=== PATIENT | female | born 1975 | race Two or more races ===

== ENCOUNTER 2016-09-06 19:02 | Inpatient (IN) | payer MEDICAID ==
[~2016-09-06] VITALS: Ht 160 cm; Wt 72.1 kg
[2016-09-06] MEDS ORDERED: NKM (19:19)
--- NOTE | 2016-09-06 19:43 | Emergency Room Report ---
History of Present Illness General Chief Complaint: Edema Source: Patient, Family Member Present Illness HPI 41 YO F brought in with daughter for 2 months progressive abd distention, increase in size with bilateral ankle swelling. History of cirrhosis from heavy former/?current ETOH abuse (daughter states they are trying to "keep on her" about stopping drinking). Was given Augmenin Po Abx for "infection" of the stomach. Denies fever/chills, rash, nausea/vomiting, diarrhea. Allergies: Coded Allergies: No Known Allergies (Unverified , 09/06/16) Patient History Past Medical History: none Past Surgical History: none Pertinent Family History: none Social History: Reports: alcohol use Now: No Immunizations: UTD Reviewed Nursing Documentation: PMH: Agreed, PSxH: Agreed Nursing Documentation-PMH Past Medical History: No Stated History Review of Systems All Other Systems: negative except mentioned in HPI Physical Exam Vital Signs Date Time Temp Pulse Resp B/P Pulse Ox O2 Delivery O2 Flow Rate FiO2 09/06/16 19:08 98.4 108 20 131/65 96 Room Air Sp02 EP Interpretation: reviewed, abnormal General Appearance: normal inspection, well appearing, no apparent distress, alert, GCS 15, non-toxic Head: normocephalic, atraumatic Eyes: bilateral eye scleral icterus ENT: normal ENT inspection, hearing grossly normal, normal voice Neck: normal inspection, full range of motion, supple, no bony tend Respiratory: normal inspection, lungs clear, normal breath sounds, no respiratory distress, no retraction, no wheezing Cardiovascular #1: regular rate, rhythm, no edema Gastrointestinal: normal inspection, normal bowel sounds, no guarding, no hernia, distended, other - Very distended abdomen Genitourinary: no CVA tenderness Musculoskeletal: normal inspection, back normal, normal range of motion, Derek' s Sign negative, other - bilateral ankle, lower extremity edema, 2+ Neurologic: normal inspection, alert, oriented x3, responsive, orthotic aide III-XII nml as tested, motor strength/tone normal, speech normal Psychiatric: normal inspection Skin: jaundice Medical Decision Making Diagnostic Impression: Primary Impression: Ascites Qualified Codes: K70.31 - Alcoholic cirrhosis of liver with ascites Additional Impressions: Edema, peripheral Jaundice Atrial fibrillation Qualified Codes: I48.91 - Unspecified atrial fibrillation UTI (urinary tract infection) Qualified Codes: N30.01 - Acute cystitis with hematuria Hypoalbuminemia Hepatosplenomegaly Pleural effusion associated with hepatic disorder Hypokalemia ER Course Ascites, bilateral peripheral extremity edema, jaundice in setting of chronic ETOH abuse Likely cirrhosis No fever/chills and no significant ttp - unlikely SBP at this time PLAN Labs, CTAP Likely will need therapeutic drainage Admission EKG Diagnostic Results Rate: other - Atrial fib ST Segments: no acute changes ASA given to the pt in ED: No Rhythm Strip Diag. Results EP Interpretation: yes Rate: 105 Reevaluation Time: 21:22 Last Vital Signs Date Time Temp Pulse Resp B/P Pulse Ox O2 Delivery O2 Flow Rate FiO2 09/06/16 19:08 98.4 108 20 131/65 96 Room Air Status: improved Reevaluation Impression CTAP: large ascites, bilateral pleural effusions, hepatomegaly UA: 5-10 WBCs Labs: HypoK 3.2, total bili 2.4, direct 1.2, AST 56, albumin 1.7. Hb critically low ECG shows Atrial fib, HR 105. No RVR. No chest pain, SOB. Unknown duration of Atrial fib. PLAN Endorsed to Dr Mata for med/surg admission at 924pm 2U PRBC ordered K repleted IV ceftriaxone for UTI Disposition: ADMITTED INPATIENT Condition: Serious JUAN CARLOS GORDON M.D. Sep 06, 2016 19:43
[2016-09-06] MEDS ORDERED: Morphine Sulfate 2mg/ml Inj IVP ONE (19:45)
[2016-09-06 19:53] VITALS: BP 130/73
[2016-09-06 20:20] LABS: MEAN CORPUSCULAR HEMOGLOBIN 22.9 PG (27.0-31.0); MEAN CORPUSCULAR HGB CONC 28.9 G/DL (32.0-36.0); MEAN CORPUSCULAR VOLUME 79 FL (80-99); MEAN PLATELET VOLUME 5.1 FL (6.5-10.1); PLATELET COUNT 285 K/UL (150-450); RED BLOOD COUNT 2.75 M/UL (4.20-5.40); RED CELL DISTRIBUTION WIDTH 19.7 % (11.6-14.8); WHITE BLOOD COUNT 9.7 K/UL (4.8-10.8)
[2016-09-06 20:22] LABS: APPEARANCE,URINE CLEAR; KETONES,URINE NEGATIVE (NEGATIVE); LEUKOCYTE ESTERASE ,URINE 3+ (NEGATIVE); NITRITE,URINE NEGATIVE (NEGATIVE); PH,URINE 7 (4.5-8.0); PROTEIN,URINE NEGATIVE (NEGATIVE); UROBILINOGEN,URINE NORMAL MG/DL (0.0-1.0)
[2016-09-06 20:35] LABS: AMMONIA 33 umol/L (11-51)
[2016-09-06 20:36] LABS: ALANINE AMINOTRANSFERASE 13 U/L (3-33); ALBUMIN/GLOBULIN RATIO 0.2 (1.0-2.7); ANION GAP 18 (5-15); ASPARTATE AMINO TRANSFERASE 56 U/L (5-40); CARBON DIOXIDE 19 mEQ/L (20-30); CHLORIDE 97 mEQ/L (98-107); CREATININE 0.5 mg/dL (0.5-0.9); GLOMERULAR FILTRATION RATE > 60 mL/min (>60); HEMOLYSIS 0; LIPASE 31 U/L (< 60); POTASSIUM 3.2 mEQ/L (3.4-4.9); SODIUM 134 mEQ/L (135-145)
[2016-09-06 20:37] LABS: BACTERIA,URINE MODERATE /HPF; SQUAMOUS EPITHELIAL CELL,UR FEW /LPF (NONE/OCC)
[2016-09-06 20:59] LABS: BILIRUBIN,DIRECT 1.2 mg/dL (0.1-0.3)
[2016-09-06 21:27] LABS: ANISOCYTOSIS 2+; BAND NEUTROPHILS % (MANUAL) 3 % (0-8); BASOPHILS % (MANUAL) 1 % (0-2); EOSINOPHILS % (MANUAL) 1 % (0-3); HYPOCHROMASIA 2+; LYMPHOCYTES % (MANUAL) 21 % (20-45); NEUTROPHILS % (MANUAL) 71 % (45-75); PLATELET ESTIMATE ADEQUATE; PLATELET MORPHOLOGY NORMAL; TOTAL CELLS COUNTED 100
[2016-09-06] MEDS ORDERED: cefTRIAXone 1 GM in NS 55 ML IVPB ONE (21:30)
[2016-09-06] MEDS ORDERED: Morphine Sulfate 2mg/ml Inj IVP PRN (21:45)
[2016-09-06] MEDS ORDERED: Mylanta II UD 30ml ORAL PRN (21:45)
[2016-09-06] MEDS ORDERED: Miralax 17gm pkt ORAL PRN (21:45)
[2016-09-06] MEDS ORDERED: Zolpidem 5mg tab ORAL PRN (21:45)
[2016-09-06] MEDS ORDERED: LORazepam Inj 2mg/ml 1ml IV PRN (21:45)
[2016-09-06 22:25] VITALS: BP 110/66
--- NOTE | 2016-09-06 23:05 | General Progress Note ---
Assessment/Plan Assessment/Plan Assessment - EtOH Cirrhosis - Ascites - Anemia - Edema Recommendations - Transfuse - Paracentesis - PPI - Thiamine - GI endoscopy at later date - check AFP - check CT Thank you Halie Davis MD Subjective Allergies: Coded Allergies: No Known Allergies (Unverified , 09/06/16) Objective Last 24 Hour Vital Signs Date Time Temp Pulse Resp B/P Pulse Ox O2 Delivery O2 Flow Rate FiO2 09/06/16 22:25 98.4 98 16 110/66 100 Room Air 09/06/16 20:28 98.4 09/06/16 19:54 105 20 Room Air 09/06/16 19:53 98.4 105 20 130/73 100 Room Air 09/06/16 19:08 98.4 108 20 131/65 96 Room Air Laboratory Tests 09/06/16 19:30: Urine Color Pale yellow, Urine Appearance Clear, Urine pH 7, Urine Specific [place] 1.005, Urine Protein Negative, Urine Glucose (UA) Negative, Urine Ketones Negative, Urine Occult Blood 1+H, Urine Nitrite Negative, Urine Bilirubin Negative, Urine Urobilinogen Normal, Urine Leukocyte Esterase 3+H, Urine RBC 2-4H, Urine WBC 5-10H, Urine Squamous Epithelial Cells Few, Urine Bacteria ModerateH, Urine HCG, Qualitative Negative 09/06/16 19:45: White Blood Count 9.7, Red Blood Count 2.75L, Hemoglobin 6.3*L, Hematocrit 21.8L , Mean Corpuscular Volume 79L, Mean Corpuscular Hemoglobin 22.9L, Mean Corpuscular Hemoglobin Concent 28.9L, Red Cell Distribution Width 19.7H, Platelet Count 285, Mean Platelet Volume 5.1L, Neutrophils (%) (Auto) , Lymphocytes (%) (Auto) , Monocytes (%) (Auto) , Eosinophils (%) (Auto) , Basophils (%) (Auto) , Differential Total Cells Counted 100, Neutrophils % ( Manual) 71, Lymphocytes % (Manual) 21, Monocytes % (Manual) 3, Eosinophils % ( Manual) 1, Basophils % (Manual) 1, Band Neutrophils 3, Platelet Estimate Adequate, Platelet Morphology Normal, Hypochromasia 2+, Anisocytosis 2+, Sodium Level 134L, Potassium Level 3.2L, Chloride Level 97L, Carbon Dioxide Level 19L, Anion Gap 18H, Blood Urea Nitrogen 3L, Creatinine 0.5, Estimat Glomerular Filtration Rate > 60, Glucose Level 109H, Calcium Level 8.0L, Total Bilirubin 2.4H, Direct Bilirubin 1.2H, Aspartate Amino Transf (AST/SGOT) 56H, Alanine Aminotransferase (ALT/SGPT) 13, Alkaline Phosphatase 150H, Ammonia 33, Total Protein 8.0, Albumin 1.7L, Globulin 6.3, Albumin/Globulin Ratio 0.2L, Lipase 31 Height (Feet): 5 Height (Inches): 1.00 Weight (Pounds): 160 HALIE DAVIS Sep 06, 2016 23:05
[2016-09-06 23:25] VITALS: BP 115/67
[2016-09-07] VITALS (12 sets, daily range): BP systolic 103–121; BP diastolic 60–84
[2016-09-07] MEDS: Lactulose 20gm/30ml UDC ORAL SCH ×3 (00:36→11:56)
--- NOTE | 2016-09-07 08:48 | Consultation ---
DATE OF CONSULTATION: 09/06/2016 GASTROENTEROLOGY CONSULTATION CONSULTING PHYSICIAN: Halie Davis M.D. REFERRING PHYSICIAN: Darinel Mata M.D. CHIEF COMPLAINT: I was asked to see this patient by Dr. Darinel Mata for evaluation of ascites and cirrhosis. HISTORY OF PRESENT ILLNESS: The patient is a pleasant 41-year-old woman, who was brought into the emergency room due to increasing abdominal girth. The patient apparently is having significant alcohol history. She used to drink on a regular basis for several years. She states she was cutting down and her last time of drinking was about two months ago. She had a few drinks about two weeks ago. She went to an outside hospital a few weeks ago with some abdominal discomfort and distention, and was given some type of antibiotics for some type of infection. The details are not clear since the patient is also a poor historian. However, now, the patient comes in with increasing abdominal girth and significant leg edema. She denies any abdominal pain. She has had no history of hepatitis B, hepatitis C, or intravenous drug use. She did not have any other major medical problems. PAST MEDICAL HISTORY: Otherwise negative. FAMILY HISTORY: Noncontributory. SOCIAL HISTORY: The patient lives in . She does not smoke. She has a heavy drinking history as described above. REVIEW OF SYSTEMS: Otherwise negative. PHYSICAL EXAMINATION: GENERAL: A pleasant woman, seen in emergency room, daughter at bedside. HEENT: Normocephalic and atraumatic. Sclerae anicteric. Oropharynx clear. NECK: Supple. CHEST: Clear to auscultation. CARDIOVASCULAR: Regular rate. ABDOMEN: Soft with good bowel sounds. Distended. Some ascites could be appreciated. EXTREMITIES: Bilateral 1+ edema. NEUROLOGIC: Grossly nonfocal without asterixis. LABORATORY DATA: Noted. ASSESSMENT AND PLAN: The patient presents with decompensated liver disease with jaundice, ascites, and edema. In addition, the patient had significant degree of anemia of unclear etiology. The patient's stools will have to be checked for blood and she will need to be transfused. In addition, I will check the patient's ammonia level . Alpha fetoprotein and imaging screen should be done for hepatocellular carcinoma. I would like the patient to get a paracentesis for cytology and . The patient's prognosis is somewhat negative given her extent of cirrhosis. Endoscopy should be done once the patient is more stable. Thank you for asking me to participate in the care of this patient. Halie Davis M.D. DR: GURWINDER JOB#: [id number] CC:
--- NOTE | 2016-09-07 08:57 | Diagnostic Imaging Report ---
Clinical Indication: Abdominal pain and distention Technique: No oral contrast utilized, per emergency room physician request IV administration nonionic contrast. Venous phase spiral acquisition obtained through the abdomen and pelvis. Multiplanar reconstructions were generated. Total dose length product 1024 mGycm. CTDIvol(s) 19 mGy Comparison: None Findings: There is a moderate to large amount of ascites fluid present. There is considerable edema of the subcutaneous and abdominal fat. There are bilateral large pleural effusions, left greater than right The appendix is not definitely demonstrated, but there are no findings to suggest acute appendicitis. No evidence of diverticulosis or diverticulitis. No small bowel distention. No free intraperitoneal air The gallbladder contains gallstones. The wall is not grossly thickened. The liver is borderline enlarged. The spleen is upper limits normal in size. The bile ducts, pancreas, adrenals, kidneys are all unremarkable. No mesenteric or retroperitoneal mass or adenopathy. No pelvic mass or adenopathy. There is a 15 mm low-attenuation lesion within the lower uterus, could represent a small cervical fibroid or a large nabothian cyst. The adnexal structures are unremarkable. Lung bases demonstrate partial atelectasis of the right lower lobe due to compression pleural fluid, and what may be complete atelectasis of left lower lobe. The heart is enlarged. The bones demonstrate degenerative spondylosis changes. There is transitional anatomy of lumbosacral junction. Prominent nodes are seen in the bilateral inguinal regions. Impression: Anasarca, with moderate to large ascites, bilateral large pleural effusions, and edema of the subcutaneous abdominal fat Left lower lobe and partial right lower lobe pulmonary atelectasis, due to the pleural fluid Borderline hepatosplenomegaly Cardiomegaly Cholelithiasis Incidental findings noted, including degenerative spondylosis, transitional lumbosacral anatomy, a small cervical fibroid versus nabothian cysts This agrees with the preliminary interpretation provided overnight by Dr. Huber The CT scanner at [facility] is accredited by the [employer] and the scans are performed using protocols designed to limit radiation exposure to as low as reasonably achievable to attain images of sufficient resolution adequate for diagnostic evaluation.
[2016-09-07] MEDS ORDERED: Cefepime 1gm vial ONE ×2 (09:20→11:46)
[2016-09-07] MEDS: Cefepime HCl 1 GM in D5W 55 ML IV SCH ×2 (09:28→14:20)
[2016-09-07 10:18] LABS: BASOPHILS % (AUTO) 1.5 % (0.0-2.0); EOSINOPHILS % (AUTO) 1.3 % (0.0-3.0); LYMPHOCYTES % (AUTO) 19.6 % (20.0-45.0); MEAN CORPUSCULAR HEMOGLOBIN 25.3 PG (27.0-31.0); MEAN CORPUSCULAR HGB CONC 31.4 G/DL (32.0-36.0); MEAN CORPUSCULAR VOLUME 81 FL (80-99); MEAN PLATELET VOLUME 5.8 FL (6.5-10.1); MONOCYTES % (AUTO) 10.1 % (1.0-10.0); NEUTROPHILS % (AUTO) 67.5 % (45.0-75.0); PLATELET COUNT 284 K/UL (150-450); RED BLOOD COUNT 3.55 M/UL (4.20-5.40); RED CELL DISTRIBUTION WIDTH 18.3 % (11.6-14.8); WHITE BLOOD COUNT 7.5 K/UL (4.8-10.8)
[2016-09-07 10:32] LABS: ALANINE AMINOTRANSFERASE 12 U/L (3-33); ALBUMIN/GLOBULIN RATIO 0.2 (1.0-2.7); ANION GAP 14 (5-15); ASPARTATE AMINO TRANSFERASE 49 U/L (5-40); CALCIUM 7.7 mg/dL (8.6-10.2); CARBON DIOXIDE 21 mEQ/L (20-30); CHLORIDE 101 mEQ/L (98-107); CHOLESTEROL 145 mg/dL (< 200); CHOLESTEROL/HDL RATIO 10.4 (3.3-4.4); CREATININE 0.5 mg/dL (0.5-0.9); GLOMERULAR FILTRATION RATE > 60 mL/min (>60); HEMOLYSIS 3; LDL CHOLESTEROL (CALC.) 107 mg/dL (60-99); POTASSIUM 3.3 mEQ/L (3.4-4.9); SODIUM 136 mEQ/L (135-145); TOTAL PROTEIN 7.2 g/dL (6.6-8.7)
[2016-09-07 10:33] LABS: AMMONIA 48 umol/L (11-51)
[2016-09-07 10:54] LABS: BILIRUBIN,DIRECT 1.4 mg/dL (0.1-0.3)
[2016-09-07 11:25] LABS: INR 1.7 (0.9-1.1)
--- NOTE | 2016-09-07 15:52 | Diagnostic Imaging Report ---
Indications: Ascites Technique: Ultrasound used to localize optimal puncture site. Sterile prepping and draping right lower quadrant. Local anesthesia with 1% lidocaine. Under real-time ultrasound guidance, puncture peritoneal space using paracentesis needle. Stylet removed. Catheter placed to vacuum bottle suction. Total 4.5 liters of clear yellow fluid aspirated. Patient tolerated procedure well, without immediate complication. Findings: Followup sonography demonstrates complete resolution of peritoneal fluid. Impression: Successful ultrasound-guided paracentesis, yielding 4.5 liters of clear yellow fluid
--- NOTE | 2016-09-07 17:04 | History & Physical ---
History and Physical History & Physicial Job [id number] Darinel Mata MD Sep 07, 2016 17:03
[2016-09-07] MEDS ORDERED: LASIX20 M1 ORAL (17:05)
[2016-09-07] MEDS ORDERED: ALDACTONE50 MG ORAL (17:05)
[2016-09-07] MEDS ORDERED: PROTONIX40 M2 GT (17:05)
--- NOTE | 2016-09-07 17:08 | Consultation ---
History of Present Illness General Chief Complaint: Edema Present Illness Allergies: Coded Allergies: No Known Allergies (Unverified , 09/06/16) Medication History Scheduled No Known Medications* (NKM - No Known Medications*), 0 ., (Reported) Patient History Healthcare decision maker Resuscitation status Advanced Directive on File Physical Exam Last 24 Hour Vital Signs Date Time Temp Pulse Resp B/P Pulse Ox O2 Delivery O2 Flow Rate FiO2 09/07/16 15:31 98.1 95 21 121/67 98 Room Air 09/07/16 14:18 95 21 121/67 98 Room Air 09/07/16 10:49 101 21 105/84 98 Room Air 09/07/16 08:18 98.1 98 21 108/72 98 Room Air 09/07/16 06:25 98.1 93 21 115/65 98 Room Air 09/07/16 05:25 98.3 91 21 111/64 98 Room Air 09/07/16 04:25 98.2 92 18 112/64 98 Room Air 09/07/16 03:25 97.9 96 21 115/66 98 Room Air 09/07/16 02:25 98.4 97 22 109/66 99 Room Air 09/07/16 01:25 98.3 95 21 113/65 100 Room Air 09/07/16 00:25 98.3 90 20 116/63 100 Room Air 09/06/16 23:40 98.6 95 17 09/06/16 23:25 98.6 98 17 115/67 100 Room Air 09/06/16 22:25 98.4 98 16 110/66 100 Room Air 09/06/16 20:28 98.4 09/06/16 19:54 105 20 Room Air 09/06/16 19:53 98.4 105 20 130/73 100 Room Air 09/06/16 19:08 98.4 108 20 131/65 96 Room Air Intake and Output 09/06/16 09/07/16 19:00 07:00 Output Total 101 ml Balance -101 ml Output Urine Total 100 ml Stool Total 1 ml # Voids 1 Laboratory Tests Test 09/06/16 19:30 09/06/16 19:45 09/07/16 10:00 09/07/16 10:50 Urine Color Pale yellow Urine Appearance Clear Urine pH 7 (4.5-8.0) Urine Specific [place] 1.005 (1.005-1.035) Urine Protein Negative (NEGATIVE) Urine Glucose (UA) Negative (NEGATIVE) Urine Ketones Negative (NEGATIVE) Urine Occult Blood 1+ (NEGATIVE) H Urine Nitrite Negative (NEGATIVE) Urine Bilirubin Negative (NEGATIVE) Urine Urobilinogen Normal MG/DL (0.0-1.0) Urine Leukocyte Esterase 3+ (NEGATIVE) H Urine RBC 2-4 /HPF (0 - 2) H Urine WBC 5-10 /HPF (0 - 2) H Urine Squamous Epithelial Cells Few /LPF (NONE/OCC) Urine Bacteria Moderate /HPF (NONE) H Urine HCG, Qualitative Negative White Blood Count 9.7 K/UL (4.8-10.8) 7.5 K/UL (4.8-10.8) Red Blood Count 2.75 M/UL (4.20-5.40) L 3.55 M/UL (4.20-5.40) L Hemoglobin 6.3 G/DL (12.0-16.0) *L 9.0 G/DL (12.0-16.0) #L Hematocrit 21.8 % (37.0-47.0) L 28.6 % (37.0-47.0) #L Mean Corpuscular Volume 79 FL (80-99) L 81 FL (80-99) Mean Corpuscular Hemoglobin 22.9 PG (27.0-31.0) L 25.3 PG (27.0-31.0) L Mean Corpuscular Hemoglobin Concent 28.9 G/DL (32.0-36.0) L 31.4 G/DL (32.0-36.0) L Red Cell Distribution Width 19.7 % (11.6-14.8) H 18.3 % (11.6-14.8) H Platelet Count 285 K/UL (150-450) 284 K/UL (150-450) Mean Platelet Volume 5.1 FL (6.5-10.1) L 5.8 FL (6.5-10.1) L Neutrophils (%) (Auto) % (45.0-75.0) 67.5 % (45.0-75.0) Lymphocytes (%) (Auto) % (20.0-45.0) 19.6 % (20.0-45.0) L Monocytes (%) (Auto) % (1.0-10.0) 10.1 % (1.0-10.0) H Eosinophils (%) (Auto) % (0.0-3.0) 1.3 % (0.0-3.0) Basophils (%) (Auto) % (0.0-2.0) 1.5 % (0.0-2.0) Differential Total Cells Counted 100 Neutrophils % (Manual) 71 % (45-75) Lymphocytes % (Manual) 21 % (20-45) Monocytes % (Manual) 3 % (1-10) Eosinophils % (Manual) 1 % (0-3) Basophils % (Manual) 1 % (0-2) Band Neutrophils 3 % (0-8) Platelet Estimate Adequate Platelet Morphology Normal Hypochromasia 2+ Anisocytosis 2+ Sodium Level 134 mEQ/L (135-145) L 136 mEQ/L (135-145) Potassium Level 3.2 mEQ/L (3.4-4.9) L 3.3 mEQ/L (3.4-4.9) L Chloride Level 97 mEQ/L (98-107) L 101 mEQ/L (98-107) Carbon Dioxide Level 19 mEQ/L (20-30) L 21 mEQ/L (20-30) Anion Gap 18 (5-15) H 14 (5-15) Blood Urea Nitrogen 3 mg/dL (7-23) L 3 mg/dL (7-23) L Creatinine 0.5 mg/dL (0.5-0.9) 0.5 mg/dL (0.5-0.9) Estimat Glomerular Filtration Rate > 60 mL/min (>60) > 60 mL/min (>60) Glucose Level 109 mg/dL (74-106) H 109 mg/dL (74-106) H Calcium Level 8.0 mg/dL (8.6-10.2) L 7.7 mg/dL (8.6-10.2) L Total Bilirubin 2.4 mg/dL (0.0-1.2) H 2.8 mg/dL (0.0-1.2) H Direct Bilirubin 1.2 mg/dL (0.1-0.3) H 1.4 mg/dL (0.1-0.3) H Aspartate Amino Transf (AST/SGOT) 56 U/L (5-40) H 49 U/L (5-40) H Alanine Aminotransferase (ALT/SGPT) 13 U/L (3-33) 12 U/L (3-33) Alkaline Phosphatase 150 U/L (35-104) H 129 U/L (35-104) H Ammonia 33 umol/L (11-51) 48 umol/L (11-51) Total Protein 8.0 g/dL (6.6-8.7) 7.2 g/dL (6.6-8.7) Albumin 1.7 g/dL (3.5-5.2) L 1.6 g/dL (3.5-5.2) L Globulin 6.3 g/dL 5.6 g/dL Albumin/Globulin Ratio 0.2 (1.0-2.7) L 0.2 (1.0-2.7) L Lipase 31 U/L (< 60) Triglycerides Level 118 mg/dL (< 150) Cholesterol Level 145 mg/dL (< 200) LDL Cholesterol 107 mg/dL (60-99) H HDL Cholesterol 14 mg/dL (> 60) Cholesterol/HDL Ratio 10.4 (3.3-4.4) H Thyroid Stimulating Hormone (TSH) 6.520 uIU/mL (0.300-4.500) Prothrombin Time 18.0 SEC (9.30-11.50) H Prothromb Time International Ratio 1.7 (0.9-1.1) H Activated Partial Thromboplast Time 38 SEC (23-33) H Microbiology Date/Time Source Procedure Growth Status 09/06/16 19:30 Urine,Clean Catch Urine Culture - Preliminary Resulted Height (Feet): 5 Height (Inches): 1.00 Weight (Pounds): 160 Medications Current Medications Medications (Trade) Dose Ordered Sig/Rodrick Route PRN Reason Start Time Stop Time Status Last Admin Dose Admin Acetaminophen (Tylenol) 650 mg Q4H PRN ORAL fever 09/06/16 21:45 10/06/16 21:44 Al Hydroxide/Mg Hydroxide (Mylanta II) 30 ml Q6H PRN ORAL dyspepsia 09/06/16 21:45 10/06/16 21:44 Cefepime HCl/ Dextrose (Maxipime/D5W) 55 ml @ 110 mls/hr EVERY 8 HOURS IV 09/07/16 08:00 09/14/16 07:59 09/07/16 14:20 Dextrose (Dextrose 50%) STAT PRN IV Hypoglycemia 09/06/16 21:45 10/06/16 21:44 Lactulose 30 gm 30 gm EVERY 6 HOURS ORAL 09/07/16 00:00 10/07/16 00:00 09/07/16 11:56 Lorazepam (Ativan 2mg/ml 1ml) 0.5 mg Q4H PRN IV For Anxiety 09/06/16 21:45 09/13/16 21:44 Morphine Sulfate (Morphine Sulfate) 2 mg Q4H PRN IVP For Pain 09/06/16 21:45 09/13/16 21:44 09/07/16 16:35 Ondansetron HCl (Zofran) 4 mg Q6H PRN IVP Nausea & Vomiting 09/06/16 21:45 10/06/16 21:44 Polyethylene Glycol (Miralax) 17 gm HSPRN PRN ORAL Constipation 09/06/16 21:45 10/06/16 21:44 Zolpidem Tartrate (Ambien) 5 mg HSPRN PRN ORAL Insomnia 09/06/16 21:45 10/06/16 21:44 Assessment/Plan Problem List: (1) Ascites ICD Codes: R18.8 - Other ascites SNOMED: 606972672 Qualifiers: Qualified Codes: K70.31 - Alcoholic cirrhosis of liver with ascites (2) Jaundice ICD Codes: R17 - Unspecified jaundice SNOMED: 86606487 (3) Edema, peripheral ICD Codes: R60.9 - Edema, unspecified SNOMED: 007851287 (4) Pleural effusion associated with hepatic disorder ICD Codes: K76.9 - Liver disease, unspecified; J91.8 - Pleural effusion in other conditions classified elsewhere SNOMED: 71560127 (5) Hepatosplenomegaly ICD Codes: R16.2 - Hepatomegaly with splenomegaly, not elsewhere classified SNOMED: 93776162 KELLY MCCAULEY Sep 07, 2016 17:08
--- NOTE | 2016-09-07 20:15 | General Progress Note ---
Assessment/Plan Assessment/Plan Assessment - EtOH Cirrhosis - Ascites - Anemia - Edema Recommendations - Transfuse PRN - Paracentesis - PPI - Thiamine - GI endoscopy at later date - check AFP - check CT Subjective Allergies: Coded Allergies: No Known Allergies (Unverified , 09/06/16) Subjective seen early am in ER no new complaints s/p transfusion Objective Last 24 Hour Vital Signs Date Time Temp Pulse Resp B/P Pulse Ox O2 Delivery O2 Flow Rate FiO2 09/07/16 15:31 98.1 95 21 121/67 98 Room Air 09/07/16 14:18 95 21 121/67 98 Room Air 09/07/16 10:49 101 21 105/84 98 Room Air 09/07/16 08:18 98.1 98 21 108/72 98 Room Air 09/07/16 06:25 98.1 93 21 115/65 98 Room Air 09/07/16 05:25 98.3 91 21 111/64 98 Room Air 09/07/16 04:25 98.2 92 18 112/64 98 Room Air 09/07/16 03:25 97.9 96 21 115/66 98 Room Air 09/07/16 02:25 98.4 97 22 109/66 99 Room Air 09/07/16 01:25 98.3 95 21 113/65 100 Room Air 09/07/16 00:25 98.3 90 20 116/63 100 Room Air 09/06/16 23:40 98.6 95 17 09/06/16 23:25 98.6 98 17 115/67 100 Room Air 09/06/16 22:25 98.4 98 16 110/66 100 Room Air 09/06/16 20:28 98.4 Intake and Output 09/06/16 09/07/16 19:00 07:00 Output Total 101 ml Balance -101 ml Output Urine Total 100 ml Stool Total 1 ml # Voids 1 Laboratory Tests 09/07/16 10:00: White Blood Count 7.5, Red Blood Count 3.55L, Hemoglobin 9.0#L, Hematocrit 28.6# L, Mean Corpuscular Volume 81, Mean Corpuscular Hemoglobin 25.3L, Mean Corpuscular Hemoglobin Concent 31.4L, Red Cell Distribution Width 18.3H, Platelet Count 284, Mean Platelet Volume 5.8L, Neutrophils (%) (Auto) 67.5, Lymphocytes (%) (Auto) 19.6L, Monocytes (%) (Auto) 10.1H, Eosinophils (%) (Auto ) 1.3, Basophils (%) (Auto) 1.5, Sodium Level 136, Potassium Level 3.3L, Chloride Level 101, Carbon Dioxide Level 21, Anion Gap 14, Blood Urea Nitrogen 3L, Creatinine 0.5, Estimat Glomerular Filtration Rate > 60, Glucose Level 109H , Calcium Level 7.7L, Total Bilirubin 2.8H, Direct Bilirubin 1.4H, Aspartate Amino Transf (AST/SGOT) 49H, Alanine Aminotransferase (ALT/SGPT) 12, Alkaline Phosphatase 129H, Ammonia 48, Total Protein 7.2, Albumin 1.6L, Globulin 5.6, Albumin/Globulin Ratio 0.2L, Triglycerides Level 118, Cholesterol Level 145, LDL Cholesterol 107H, HDL Cholesterol 14, Cholesterol/HDL Ratio 10.4H, Thyroid Stimulating Hormone (TSH) 6.520H 09/07/16 10:50: Prothrombin Time 18.0H, Prothromb Time International Ratio 1.7H, Activated Partial Thromboplast Time 38H Height (Feet): 5 Height (Inches): 3.00 Weight (Pounds): 159 Objective WDWN NCAT supple CTA RRR Soft distended (+) edema no asterixes BREEZY RIVERA Sep 07, 2016 20:15
--- NOTE | 2016-09-07 21:48 | History and Physical Report ---
DATE OF ADMISSION: 09/06/2016 CHIEF COMPLAINT: Pedal edema and abdominal distention. HISTORY OF PRESENT ILLNESS: This is a 41 years old female with past medical history significant for alcoholism as well as liver cirrhosis, who presented to the hospital complaining about the progressive worsening of the abdominal girdle and distention and ankle edema. The patient said that she has been drinking and the daughter stated that they are trying to keep her and stop drinking, but she was not compliant. She was given Augmentin and antibiotics infection in the stomach and then she denies any fever or chills. Denies any nausea or vomiting. Denies any diarrhea. Denies any bright red blood per rectum. Denies any dark stools. Denies any , or hemoptysis. Shortly after initial evaluation in the emergency, the patient was noted to have a hemoglobin of 6.3 and then subsequently the patient was admitted to the hospital with acute liver cirrhosis with severe anemia. PAST MEDICAL HISTORY AND PAST SURGICAL HISTORY: As above, history of alcoholism with alcohol liver cirrhosis with ascites, anemia, and pedal edema. MEDICATIONS: At home is none. FAMILY HISTORY: Noncontributory. SOCIAL HISTORY: The patient lives at home. She does not smoke. She is a heavy drinker. REVIEW OF SYSTEMS: Mostly as above. PHYSICAL EXAMINATION: VITAL SIGNS: Temperature 98.3, pulse of 91, respirations 21, and blood pressure 111/64. GENERAL: The patient is awake, responsive, in no acute distress. HEAD AND NECK: Pupils are reactive to light. Extraocular movements are intact. Neck was supple. No JVD. LUNGS: Good air entry. No wheezing or rales. HEART: S1 and S2. Regular rhythm. No gallops. ABDOMEN: Soft. Fluid shift. Distended. EXTREMITIES: A +2 edema of the bilateral lower extremities. NEUROLOGIC: Cranial nerves II through XII are grossly intact. Moves all four extremities. Gait is intact. LABORATORY AND DIAGNOSTIC DATA: Laboratory on admission, WBC of 9.7, hemoglobin of 6.3, hematocrit 21, and platelet is 285,000. Sodium 134, potassium 3.2, chloride 97, bicarbonate 19, BUN 3, creatinine 0.5, and glucose is 109. Total bilirubin of 2.4 and direct bilirubin of 1.2. Ammonia level 33. Cholesterol is 145. PT of 18, INR 1.7, and PTT of 38. Urinalysis and beta-HCG is negative, +3 leukocytes, +1 occult blood. The patient had a duplex of lower extremity, was essentially unremarkable. CT scan of the abdomen showed that borderline hepatosplenomegaly, cardiomegaly, cholelithiasis, and ascites with a moderate to large ascites with anasarca, bilateral large pleural effusion, and edema of the subcutaneous abdominal wall. ASSESSMENT: 1. Abdominal ascites. 2. Liver cirrhosis. 3. Alcoholism. 4. Anemia. PLAN: Admit the patient to the telemetry. Discussed with the patient extensively with regards to the alcohol consumption. The patient already received packed RBC. Abdominal paracentesis was already done. Duplex of the lower extremities is negative for DVT. Discussed with the patient the consumption of alcohol, even one glass of alcohol make her to , possibly from bleeding as well as liver cirrhosis and the patient advised to follow up with the [facility] within one week or to the [facility] emergency room and try to find a primary doctor at the [facility]. I advised the patient if her status is not improving, she started having any dark stools or bright red blood per rectum, or vomiting blood, she needs to return back to the hospital emergency room or any emergency room close to the house and prescription for the Lasix, Aldactone, as well as Protonix was given to the patient. Advised the patient to have an endoscopy done as an outpatient and follow up with the [facility]. She understood that. battery installer was at bedside and confirmed that she understood and follow up with the [facility] within one week. Darinel Mata M.D. DR: RODRIGO JOB#: [id number] CC:
[2016-09-08 08:44] LABS: OTHERS PATHOLOGIST COMMENT
[2016-09-10] MEDS ORDERED: CIPRO500 MG PO (13:57)
[2016-09-10] MEDS ORDERED: CIPRO500 MG/51 PO (13:57)
--- NOTE | 2016-09-10 14:07 | Discharge Summary ---
Discharge Summary Hospital Course Date of Admission Sep 06, 2016 at 20:26 Date of Discharge Sep 07, 2016 at 19:20 Admitting Diagnosis ascites/abd pain HPI Lakshmi Cain is a 41 year old female who was admitted on Sep 06, 2016 at 20: 26 for Ascites, Abdominal Pain Hospital Course dc summary #[id number] Discharge Medications New Medications: Ciprofloxacin* (Cipro*) 500 Mg Tablet 500 MG PO BID, #14 TAB Furosemide* (Lasix*) 20 Mg Tablet 20 MG ORAL TWICE A DAY for 60 Days, TAB Pantoprazole Sodium (Protonix) 40 Mg Granpkt.dr 40 MG GT TWICE A DAY for 60 Days, PKT Spironolactone (Aldactone) 50 Mg Tablet 50 MG ORAL DAILY for 30 Days, TAB Discontinued Medications: No Known Medications* (NKM - No Known Medications*) . 0 ., 0 Refills Discharge Discharge Disposition Patient was discharged to Home (01) Discharge Diagnoses: Discharge Instructions Discharge Instructions Special Instructions I have been assigned to complete a D/C Summary on this account. I was not involved in the patient management Adriane Love NP (Vanchtein) Sep 10, 2016 14:07
--- NOTE | 2016-09-11 06:18 | Discharge Summary 2 SIG ---
DATE OF ADMISSION: 09/06/2016 DATE OF DISCHARGE: 09/07/2016 REASON FOR ADMISSION: 41-year-old female brought in by her daughter for progressive abdominal distention and bilateral ankle swelling. The patient with a known history of cirrhosis from heavy alcohol abuse. The patient was getting Augmentin antibiotics for possible infection of the stomach. No fever. No chills. No nausea. No vomiting. No blood in the stool. No rash. No diarrhea. No abdominal pain. EKG showed atrial fibrillation with heart rate of [address] of the abdomen and pelvis revealed large ascites, bilateral pleural effusion and hepatomegaly. Urinalysis with evidence of UTI. Potassium 3.2. Total and direct bilirubin elevated. Total bilirubin 2.4. Direct 1.2. AST 56. Albumin 1.7. Hemoglobin 6.3 and hematocrit 21.8. In the emergency room, the patient was typed and crossed for two units of packed red blood cells. Potassium was repleted, started on IV antibiotics for UTI. Patient was admitted to the hospital for further management. ADMITTING DIAGNOSES: 1. Ascites. 2. Peripheral edema. 3. Chronic alcohol abuse. 4. Urinary tract infection. 5. Atrial fibrillation. 6. Anemia. 7. Liver cirrhosis. 8. Hypokalemia HOSPITAL STAY: The patient undergone transfusion of two units of packed red blood cells. Hemoglobin and hematocrit were stable after transfusion. GI consult was requested. GI added PPI and thiamine and recommended upper endoscopy later as outpatient. Antibiotics provided. Urine culture positive for E. coli and Strep group B. Continue oral antibiotic for additional seven days upon discharge. The patient undergone transfusion of two units of packed red blood cells. Hemoglobin and hematocrit stable, at baseline now. Hemoglobin up to 9 and hematocrit -28.6. Potassium was repleted. Since CT of the abdomen revealed large ascites, the patient undergone paracenteses, which yielded 4.5 liters of ascitic fluid . The patient immediately felt better. Doppler bilateral lower extremities was negative for DVT. The patient was counseled on alcohol cessation. Followup with [facility] in one week. Patient was explained, that if she started to have a dark or bright red blood stool per rectum or vomiting blood, she needs to come to the hospital emergency room and be evaluated immediately. Endoscopy to be done as outpatient with [facility]. The patient was stable for discharge. DISCHARGE DIAGNOSES: Include: 1. Ascites, status post paracentesis 4.5 liters. 2. Peripheral edema. 3. Chronic alcohol abuse. 4. Urinary tract infection/Escherichia coli, Streptococcal group B. 5. Atrial fibrillation. 6. Anemia, status post blood transfusion. 7. Pleural effusion. 8. Liver cirrhosis. 9. Hepatosplenomegaly. 10. Hypokalemia. 11. Hypoalbuminemia. DISCHARGE MEDICATIONS: See medication reconciliation list. DISCHARGE INSTRUCTIONS: [facility] outlined in the patient's management. Darinel Mata M.D. I have been assigned to dictate discharge summary on this account and I was not involved in the patient's management. Adriane StevensAuburn Community HospitalFrancoise N.PRoseline DR: Sandy JOB#: [id number] CC: JUDITH
--- NOTE | 2016-09-19 10:36 | Diagnostic Imaging Report ---
APPROVED REPORT CPT Code: 95479 Present Symptoms Lower Extremity Edema: Bilateral BILATERAL: Imaging reveals a patent deep venous system bilaterally. There is no evidence of thrombus within the femoral, popliteal or tibial segments. The greater saphenous veins are also within normal limits. Doppler indicates normal spontaneous flow within these segments.
== END 2016-09-07 19:20 | disposition home or self-care (01) | DRG 280 ==
LOC: EMR 20:03 → 2E 20:26 → EDBEDREQ 09-07 15:08
PROC: 30233N1 Transfusion of Nonautologous Red Blood Cells into Peripheral Vein, Percutaneous Approach (ICD-10-PCS; principal; 2016-09-06)
PROC: 0W9G3ZZ Drainage of Peritoneal Cavity, Percutaneous Approach (ICD-10-PCS; 2016-09-06)
DX: K70.31 Alcoholic cirrhosis of liver with ascites (principal); J91.8 Pleural effusion in other conditions classified elsewhere; N39.0 Urinary tract infection, site not specified; I48.91 Unspecified atrial fibrillation; E88.09 Other disorders of plasma-protein metabolism, not elsewhere classified; R16.2 Hepatomegaly with splenomegaly, not elsewhere classified; F10.20 Alcohol dependence, uncomplicated; R60.9 Edema, unspecified; B96.20 Unspecified Escherichia coli [E. coli] as the cause of diseases classified elsewhere; B95.1 Streptococcus, group B, as the cause of diseases classified elsewhere; D64.9 Anemia, unspecified; E87.6 Hypokalemia
CPT/HCPCS: 36415; 74177; 76942; 80053; 80061; 81003; 81025; 82140; 82248; 83690; 84443; 85007; 85025; 85610; 85730; 86850; 86900; 86901; 86920; 87086; 87181; 93005; 93970; J8499

== ENCOUNTER 2017-01-27 15:50 | Emergency (ER) | payer MEDICAID ==
[~2017-01-27] VITALS: Ht 157.5 cm; Wt 62.6 kg
[~2017-01-27 15:50] MED LIST: ALDACTONE50 MG ORAL; CIPRO500 MG PO; CIPRO500 MG/51 PO; LASIX20 M1 ORAL; NKM; PROTONIX40 M2 GT
[2017-01-27] MEDS ORDERED: NKM (16:02)
[2017-01-27 16:19] VITALS: BP 107/64
--- NOTE | 2017-01-27 16:20 | Emergency Room Report ---
History of Present Illness General Chief Complaint: Skin Rash/Abscess Source: Patient Present Illness HPI 41-year-old female presents emergency department complaining of multiple bug to the upper extremity approximately 5 days ago. 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 pt. states she was outside picking chili's again 2 days later. Patient denies fevers, chills patient denies bleeding. Patient denies other persons in the household with similar symptoms. She denies taking anything for her symptoms. Denies lesions/rashes elsewhere on the body. Denies new medications or body washes or creams. Denies swelling of the lips, tongue , throat or airway. Denies wheezing, or shortness of breath. Denies recent travel, recent illness or ill contacts. denies blisters, oral lesions, or sloughing of the skin. Allergies: Coded Allergies: No Known Allergies (Unverified , 09/06/16) Patient History Past Medical History: see triage record Past Surgical History: none Pertinent Family History: none Last Menstrual Period: Irregular Now: No Reviewed Nursing Documentation: PMH: Agreed, PSxH: Agreed Nursing Documentation-PMH Past Medical History: No Stated History Hx Cardiac Problems: No - No info gathered, pt is dc few mins after admission Hx Cancer: No - No info gathered, pt is dc few mins after admission Hx Neurological Problems: No Review of Systems All Other Systems: negative except mentioned in HPI Physical Exam Vital Signs Date Time Temp Pulse Resp B/P Pulse Ox O2 Delivery O2 Flow Rate FiO2 01/27/17 15:58 97.9 87 16 103/61 99 Room Air Sp02 EP Interpretation: reviewed, normal General Appearance: no apparent distress, alert, GCS 15, non-toxic Head: normocephalic, atraumatic Eyes: bilateral eye PERRL, bilateral eye normal inspection ENT: hearing grossly normal, normal pharynx, no angioedema, normal voice Neck: full range of motion Respiratory: lungs clear, normal breath sounds, speaking full sentences Cardiovascular #1: regular rate, rhythm, no edema Musculoskeletal: back normal, gait/station normal, normal range of motion, non- tender Neurologic: alert, oriented x3, responsive, motor strength/tone normal, sensory intact, speech normal Psychiatric: judgement/insight normal, memory normal, mood/affect normal Skin: normal color, warm/dry, well hydrated, rash - multiple insect bites of the bilateral UE's with localized reaction, no evidence of secondary infection, no d/c, no blisters, no linear pattern, no versicles. Lymphatic: no adenopathy Medical Decision Making PA Attestation Dr. Corona is my supervising Physician whom patient management has been discussed with. Diagnostic Impression: Primary Impression: Rash and other nonspecific skin eruption Additional Impression: Insect bite Qualified Codes: W57.XXXA - Bitten or stung by nonvenomous insect and other nonvenomous arthropods, initial encounter ER Course 41-year-old female presents emergency department complaining of multiple bug to the upper extremity approximately 5 days ago. Patient states she was out picking [employer] and had rash on UE's since then. pt. states she was outside picking [employer] again 2 days later. Patient denies fevers, chills patient denies bleeding. Patient denies other persons in the household with similar symptoms. She denies taking anything for her symptoms. Denies lesions/rashes elsewhere on the body. Denies new medications or body washes or creams. Denies swelling of the lips, tongue , throat or airway. Denies wheezing, or shortness of breath. Denies recent travel, recent illness or ill contacts. denies blisters, oral lesions, or sloughing of the skin. Ddx considered but are not limited to cellulitis, scabies, insect bites, tic bites, spider bites, contact dermatitis, Drug reaction, allergic reaction, fungal infection, lice. Vital signs: are WNL, pt. is afebrile H&PE are most consistent with multiple insect bites of the bilateral UE's with localized reaction, no evidence of secondary infection, no d/c, no blisters , no linear pattern, no versicles. ORDERS: none required at this time, the diagnosis is clinical ED INTERVENTIONS: None required at this time. DISCHARGE: At this time pt. is stable for d/c to home. Will provide printed patient care instructions, and any necessary prescriptions. Care plan and follow up instructions have been discussed with the patient prior to discharge. Last Vital Signs Date Time Temp Pulse Resp B/P Pulse Ox O2 Delivery O2 Flow Rate FiO2 01/27/17 15:58 97.9 87 16 103/61 99 Room Air Disposition: HOME, SELF-CARE Condition: Stable Patient Instructions: Insect Bite, [id number], Rash Additional Instructions: Take medications as directed. Follow up with a Primary Care Provider in 3-5 days, even if your symptoms have resolved. --Please review list of primary care clinics, if you do not already have a primary care provider Return sooner to ED if new symptoms occur, or current symptoms become worse. Do not drink alcohol, drive, or operate heavy machinery while taking Benadryl as this may cause drowsiness. - Please note that this Emergency Department Report was dictated using INcubesprinting equipment mechanic apprentice technology software, occasionally this can lead to erroneous entry secondary to interpretation by the dictation equipment. Mariela Chavez Jan 27, 2017 16:20
[2017-01-27] MEDS ORDERED: BENADRYL ALLERG25 M1 PO (16:21)
[2017-01-27] MEDS ORDERED: BACITRACIN-P28.35 GM TP (16:21)
[2017-01-27] MEDS ORDERED: HYDROCORTISONE30 G2 TP (16:21)
[2017-01-27 16:39] VITALS: BP 107/64
== END 2017-01-27 16:41 | disposition home or self-care (01) ==
LOC: EMR 16:25
DX: R21 Rash and other nonspecific skin eruption (principal); S40.862A Insect bite (nonvenomous) of left upper arm, initial encounter; S40.861A Insect bite (nonvenomous) of right upper arm, initial encounter; W57.XXXA Bitten or stung by nonvenomous insect and other nonvenomous arthropods, initial encounter; Y93.9 Activity, unspecified; Y92.9 Unspecified place or not applicable
CPT/HCPCS: 99282

== ENCOUNTER 2017-10-08 21:45 | Emergency (ER) | payer MEDICAID ==
[~2017-10-08] VITALS: Ht 152.4 cm; Wt 62.1 kg
[~2017-10-08 21:45] MED LIST changes: +BACITRACIN-P28.35 GM TP; +BENADRYL ALLERG25 M1 PO; +HYDROCORTISONE30 G2 TP
[2017-10-08 21:55] VITALS: BP 109/66
--- NOTE | 2017-10-08 23:01 | Emergency Room Report ---
History of Present Illness General Chief Complaint: Vaginal Source: Patient Present Illness HPI Patient reports that she was having her normal menstrual cycle that started 2 days ago However today began having increased vaginal bleeding Patient reports that she has had previous blood transfusions is unclear About the reason for her anemia Denies any chest pain or shortness of breath denies any back or flank pain denies any dysuria or frequency Allergies: Coded Allergies: No Known Allergies (Unverified , 09/06/16) Patient History Past Medical History: see triage record Pertinent Family History: none Last Menstrual Period: 10/02/2017 Now: No Reviewed Nursing Documentation: PMH: Agreed; PSxH: Agreed Nursing Documentation-PMH Past Medical History: No History, Except For Hx Cancer: No - No info gathered, pt is dc few mins after admission Hx Neurological Problems: No Review of Systems All Other Systems: negative except mentioned in HPI Physical Exam Vital Signs Date Time Temp Pulse Resp B/P (MAP) Pulse Ox O2 Delivery O2 Flow Rate FiO2 10/08/17 21:49 98.1 88 16 109/66 99 Room Air 98.1 Sp02 EP Interpretation: reviewed, normal General Appearance: well appearing, no apparent distress Head: normocephalic, atraumatic Eyes: bilateral eye PERRL, bilateral eye EOMI ENT: hearing grossly normal, normal pharynx, TMs + canals normal, uvula midline Neck: full range of motion, supple, no meningismus, no bony tend Respiratory: lungs clear, normal breath sounds, no rhonchi, no respiratory distress, no retraction, no accessory muscle use Cardiovascular #1: normal peripheral pulses, regular rate, rhythm, no edema, no gallop, no JVD, no murmur Gastrointestinal: normal bowel sounds, non tender, soft, no mass, no organomegaly, non-distended, no guarding, no hernia, no pulsatile mass, no rebound Genitourinary: no CVA tenderness Musculoskeletal: normal inspection Neurologic: oriented x3, responsive, academic support center director III-XII nml as tested, motor strength/ tone normal, sensory intact Psychiatric: mood/affect normal Skin: normal color, no rash, warm/dry, palpation normal Lymphatic: normal inspection, no adenopathy Medical Decision Making Diagnostic Impression: Primary Impression: Vaginal bleeding Additional Impressions: Anemia Liver disease ER Course Multiple differentials considered Patient's hemoglobin count today is 6.2 Similar to previous presentation Patient upon review of medical history also has history of liver disease which is similar to today's findings as well Patient however does not know much about her diagnoses or her conditions Patient is recommended to follow up closely with [facility] or [facility] At this time patient remains hemodynamically stable awake alert blood pressure heart rate all appropriate And patient requires improved outpatient care Labs Test 10/08/17 22:45 White Blood Count 6.6 K/UL (4.8-10.8) Red Blood Count 2.53 M/UL (4.20-5.40) Hemoglobin 6.2 G/DL (12.0-16.0) Hematocrit 21.0 % (37.0-47.0) Mean Corpuscular Volume 83 FL (80-99) Mean Corpuscular Hemoglobin 24.7 PG (27.0-31.0) Mean Corpuscular Hemoglobin Concent 29.7 G/DL (32.0-36.0) Red Cell Distribution Width 20.6 % (11.6-14.8) Platelet Count 78 K/UL (150-450) Mean Platelet Volume 7.0 FL (6.5-10.1) Neutrophils (%) (Auto) % (45.0-75.0) Lymphocytes (%) (Auto) % (20.0-45.0) Monocytes (%) (Auto) % (1.0-10.0) Eosinophils (%) (Auto) % (0.0-3.0) Basophils (%) (Auto) % (0.0-2.0) Differential Total Cells Counted 100 Neutrophils % (Manual) 70 % (45-75) Lymphocytes % (Manual) 19 % (20-45) Monocytes % (Manual) 5 % (1-10) Eosinophils % (Manual) 1 % (0-3) Basophils % (Manual) 3 % (0-2) Band Neutrophils 2 % (0-8) Platelet Estimate Decreased Platelet Morphology Normal Poikilocytosis 2+ Anisocytosis 2+ Urine Color Red Urine Appearance Turbid Urine pH 8 (4.5-8.0) Urine Specific [place] 1.015 (1.005-1.035) Urine Protein 4+ (NEGATIVE) Urine Glucose (UA) Negative (NEGATIVE) Urine Ketones Negative (NEGATIVE) Urine Occult Blood 5+ (NEGATIVE) Urine Nitrite Negative (NEGATIVE) Urine Bilirubin Negative (NEGATIVE) Urine Urobilinogen Normal MG/DL (0.0-1.0) Urine Leukocyte Esterase Negative (NEGATIVE) Urine RBC Tntc /HPF (0 - 2) Urine WBC 0 /HPF (0 - 2) Urine Squamous Epithelial Cells None /LPF (NONE/OCC) Urine Bacteria Few /HPF (NONE) Urine HCG, Qualitative Negative (NEGATIVE) Last Vital Signs Date Time Temp Pulse Resp B/P (MAP) Pulse Ox O2 Delivery O2 Flow Rate FiO2 10/08/17 21:55 98.1 16 109/66 99 Room Air 98.1 10/08/17 21:49 88 Status: unchanged Disposition: HOME, SELF-CARE Condition: Stable Referrals: NOT CHOSEN IPA/MD,REFERRING (PCP) Additional Instructions: Patient is provided with the discharge instructions notified to follow up with primary doctor in the next 2-3 days otherwise return to the er with any worsening symptoms. Please note that this report is being documented using DRAGON technology. This can lead to erroneous entry secondary to incorrect interpretation by the dictating instrument. Peter Osman DO Oct 08, 2017 23:01
[2017-10-08 23:11] LABS: MEAN CORPUSCULAR VOLUME 83 FL (80-99); PLATELET COUNT 78 K/UL (150-450); RED BLOOD COUNT 2.53 M/UL (4.20-5.40); RED CELL DISTRIBUTION WIDTH 20.6 % (11.6-14.8); WHITE BLOOD COUNT 6.6 K/UL (4.8-10.8)
[2017-10-08 23:14] LABS: HEMOGLOBIN 6.2 G/DL (12.0-16.0)
[2017-10-08 23:47] VITALS: BP 101/60
[2017-10-08 23:48] VITALS: BP 109/66
[2017-10-09 00:26] LABS: BILIRUBIN, URINE NEGATIVE (NEGATIVE); COLOR,URINE RED; GLUCOSE, URINE (UA) NEGATIVE (NEGATIVE); KETONES,URINE NEGATIVE (NEGATIVE); LEUKOCYTE ESTERASE ,URINE NEGATIVE (NEGATIVE); NITRITE,URINE NEGATIVE (NEGATIVE); PH,URINE 8 (4.5-8.0); PROTEIN,URINE 4+ (NEGATIVE); UROBILINOGEN,URINE NORMAL MG/DL (0.0-1.0)
[2017-10-09 00:40] LABS: APPEARANCE,URINE TURBID
== END 2017-10-08 23:49 | disposition home or self-care (01) ==
LOC: EMR 22:04
DX: N93.9 Abnormal uterine and vaginal bleeding, unspecified (principal); D64.9 Anemia, unspecified; K76.9 Liver disease, unspecified
CPT/HCPCS: 36415; 81003; 81025; 85007; 85025; 99282

== ENCOUNTER 2017-10-10 13:09 | Emergency (ER) | payer MEDICAID ==
[~2017-10-10] VITALS: Ht 149.9 cm; Wt 59.0 kg
[2017-10-10] VITALS (13 sets, daily range): BP systolic 84–113; BP diastolic 29–52
--- NOTE | 2017-10-10 13:38 | Emergency Room Report ---
History of Present Illness General Chief Complaint: Generalized Weakness Source: Patient Present Illness HPI Patient present with complaints of continued heavy vaginal bleeding a she was seen here recently medically stabilized and cleared recommended for follow-up at [facility] or [facility] Patient has not followed up as of yet And reports that the vaginal bleeding continued today Denies any chest pain she felt generally weak Also nauseated Denies any back or flank pain Allergies: Coded Allergies: No Known Allergies (Unverified , 09/06/16) Patient History Past Medical History: see triage record Pertinent Family History: none Last Menstrual Period: 10/07/17 Reviewed Nursing Documentation: PMH: Agreed; PSxH: Agreed Nursing Documentation-PMH Past Medical History: No History, Except For Hx Cancer: No - No info gathered, pt is dc few mins after admission Hx Neurological Problems: No Review of Systems All Other Systems: negative except mentioned in HPI Physical Exam Vital Signs Date Time Temp Pulse Resp B/P (MAP) Pulse Ox O2 Delivery O2 Flow Rate FiO2 10/10/17 13:04 99.0 97 18 92/46 99 Room Air 99.0 Sp02 EP Interpretation: reviewed, normal General Appearance: well appearing, no apparent distress Head: normocephalic, atraumatic Eyes: bilateral eye PERRL, bilateral eye EOMI ENT: hearing grossly normal, normal pharynx, TMs + canals normal, uvula midline Neck: full range of motion, supple, no meningismus, no bony tend Respiratory: lungs clear, normal breath sounds, no rhonchi, no respiratory distress, no retraction, no accessory muscle use Cardiovascular #1: normal peripheral pulses, regular rate, rhythm, no edema, no gallop, no JVD, no murmur Gastrointestinal: normal bowel sounds, non tender, soft, no mass, no organomegaly, non-distended, no guarding, no hernia, no pulsatile mass, no rebound Genitourinary: no CVA tenderness Musculoskeletal: normal inspection Neurologic: oriented x3, responsive, veneer jointer operator III-XII nml as tested, motor strength/ tone normal, sensory intact Psychiatric: mood/affect normal Skin: normal color, no rash, warm/dry, palpation normal Lymphatic: normal inspection, no adenopathy Medical Decision Making Diagnostic Impression: Primary Impression: Anemia Additional Impression: Vaginal bleeding ER Course Patient has a long-standing history of anemia Had previous blood transfusion here patient's hemoglobin was 6.2 on recent visits to the ER remained hemodynamically stable Patient was encouraged to follow-up with outpatient gynecology for further intervention and guidance patient has not followed up thus far and presents back with continued vaginal bleeding and feeling weak Patient had blood transfusion ordered And oncoming physician ordering CBC and further follow-up Last Vital Signs Date Time Temp Pulse Resp B/P (MAP) Pulse Ox O2 Delivery O2 Flow Rate FiO2 10/10/17 13:32 99.0 93 16 100/40 100 Room Air 99.0 Status: improved Peter Osman DO Oct 10, 2017 13:38
[2017-10-10] MEDS ORDERED: Ketorolac 30mg Inj IV ONE (13:45)
[2017-10-10 15:08] LABS: HEMATOCRIT 14.1 % (37.0-47.0); MEAN CORPUSCULAR VOLUME 86 FL (80-99); PLATELET COUNT 170 K/UL (150-450); RED BLOOD COUNT 1.64 M/UL (4.20-5.40); RED CELL DISTRIBUTION WIDTH 21.6 % (11.6-14.8); WHITE BLOOD COUNT 11.1 K/UL (4.8-10.8)
[2017-10-10 15:11] LABS: HEMOGLOBIN 4.1 G/DL (12.0-16.0)
[2017-10-10] MEDS ORDERED: IRON159 MG PO (15:41)
[2017-10-11] VITALS (12 sets, daily range): BP systolic 82–112; BP diastolic 37–71
[2017-10-11 04:20] LABS: HEMATOCRIT 24.4 % (37.0-47.0); HEMOGLOBIN 8.1 G/DL (12.0-16.0); MEAN CORPUSCULAR VOLUME 82 FL (80-99); PLATELET COUNT 86 K/UL (150-450); RED BLOOD COUNT 2.98 M/UL (4.20-5.40); RED CELL DISTRIBUTION WIDTH 16.2 % (11.6-14.8); WHITE BLOOD COUNT 5.5 K/UL (4.8-10.8)
== END 2017-10-11 10:31 | disposition home or self-care (01) ==
LOC: EDBD 13:09 → EMR 13:48
DX: N93.9 Abnormal uterine and vaginal bleeding, unspecified (principal); D64.9 Anemia, unspecified
CPT/HCPCS: 36415; 85007; 85025; 86850; 86900; 86901; 86920; 87070; 87205; 96374; 96375; 99284; J1885; J2405; P9016

== ENCOUNTER 2018-03-02 15:52 | Emergency (ER) | payer MEDICAID ==
[~2018-03-02] VITALS: Ht 152.4 cm; Wt 58.5 kg
[~2018-03-02 15:52] MED LIST changes: +IRON159 MG PO
[2018-03-02 16:08] VITALS: BP 114/68
--- NOTE | 2018-03-02 16:44 | Emergency Room Report ---
History of Present Illness General Chief Complaint: Abdominal Pain Source: Patient Present Illness HPI 42-year-old female with significant history of liver cirrhosis. Complaining of left upper quadrant pain for the past 2 days denies nausea or vomiting constipation diarrhea. She continues to drink daily. Denies fever chills shortness of breath chest pain palpitation or other associated symptoms. Patient does not have a primary care provider and refuses to stop drinking Allergies: Coded Allergies: No Known Allergies (Unverified , 09/06/16) Patient History Past Medical History: see triage record Past Surgical History: none Last Menstrual Period: unk Immunizations: UTD Reviewed Nursing Documentation: PMH: Agreed; PSxH: Agreed Nursing Documentation-PMH Hx Cancer: No - No info gathered, pt is dc few mins after admission Hx Neurological Problems: No Review of Systems All Other Systems: negative except mentioned in HPI Physical Exam Vital Signs Date Time Temp Pulse Resp B/P (MAP) Pulse Ox O2 Delivery O2 Flow Rate FiO2 03/02/18 15:55 98.2 99 14 114/68 97 Room Air 98.2 Sp02 EP Interpretation: reviewed, normal General Appearance: normal inspection, well appearing Head: normocephalic, atraumatic Eyes: bilateral eye scleral icterus ENT: normal ENT inspection, hearing grossly normal Neck: normal inspection, full range of motion, supple Respiratory: normal inspection, chest non-tender, lungs clear, no rhonchi, no wheezing Cardiovascular #1: normal inspection, regular rate, rhythm, no murmur Gastrointestinal: no guarding, distended - ascites secondary to liver cirrhosis Rectal: deferred Genitourinary: deferred Musculoskeletal: normal inspection, back normal Neurologic: normal inspection, alert, oriented x3 Psychiatric: other - disheveled Skin: normal inspection, warm/dry, jaundice Lymphatic: normal inspection, no adenopathy Medical Decision Making PA Attestation all diagnoses and treatment plans were reviewed and discussed with my supervising physician Dr. Barnhart Diagnostic Impression: Primary Impression: Liver disease Additional Impression: Intermittent left upper quadrant abdominal pain ER Course 42-year-old female with significant history of liver cirrhosis. Complaining of left upper quadrant pain for the past 2 days denies nausea or vomiting constipation diarrhea. She continues to drink daily. Denies fever chills shortness of breath chest pain palpitation or other associated symptoms. Patient does not have a primary care provider and refuses to stop drinking Ddx considered but are not limited to ]Liver cirrhosis, constipation, acid reflux Vital signs: are WNL, pt. is afebrile H&PE are most consistent with [ liver cirrhosis, constipation ORDERS: MiraLAX, ibuprofen ED INTERVENTIONS: None required at this time. DISCHARGE: At this time pt. is stable for d/c to home. Will provide printed patient care instructions, and any necessary prescriptions. Care plan and follow up instructions have been discussed with the patient prior to discharge. patient is highly advised to follow with her primary care provider for paracentesis due to liver cirrhosis as left upper quadrant pain secondary to cirrhosis Last Vital Signs Date Time Temp Pulse Resp B/P (MAP) Pulse Ox O2 Delivery O2 Flow Rate FiO2 03/02/18 16:08 98.2 14 114/68 97 Room Air 98.2 03/02/18 15:55 99 Disposition: HOME, SELF-CARE Condition: Stable Scripts Polyethylene Glycol 3350* (MIRALAX*) 17 Gm Powd.pack 17 GM ORAL DAILY, #1 PACKET Prov: Keila Cesar 03/02/18 Ibuprofen* (MOTRIN*) 600 Mg Tablet 600 MG ORAL BID, #30 TAB 0 Refills Prov: Keila eCsar 03/02/18 Patient Instructions: Abdominal Pain, Adult Additional Instructions: patient to stop drinking abdominal pain secondary to liver cirrhosis follow with PCP for referral to gastroenterology and possible paracentesis take medication as directed Keila Cesar Mar 02, 2018 16:44
[2018-03-02] MEDS ORDERED: MIRALAX17 G2 ORAL (16:45)
[2018-03-02] MEDS ORDERED: IBUPROFEN600 MG ORAL (16:45)
[2018-03-02 16:53] VITALS: BP 114/68
== END 2018-03-02 16:53 | disposition home or self-care (01) ==
LOC: EMR 16:45
DX: K74.0 Hepatic fibrosis (principal); K74.60 Unspecified cirrhosis of liver; R10.12 Left upper quadrant pain; F10.20 Alcohol dependence, uncomplicated
CPT/HCPCS: 99282